=== PATIENT | male | born 2000 | race Caucasian/White ===

== ENCOUNTER 2022-11-17 05:49 | Emergency (ER) | payer OTHER, BC ==
[~2022-11-17] VITALS: Ht 175.3 cm; Wt 81.6 kg
[2022-11-17 06:12] VITALS: BP_SYST 130
[2022-11-17] MEDS ORDERED: HYDR-3917 PO (07:10)
[2022-11-17] MEDS ORDERED: IBUP-1971 PO (07:10)
== END 2022-11-17 07:21 | disposition home or self-care (01) ==
LOC: SED 05:49
DX: S70.311A Abrasion, right thigh, initial encounter (principal); Z79.899 Other long term (current) drug therapy; V49.40XA Driver injured in collision with unspecified motor vehicles in traffic accident, initial encounter; Y93.89 Activity, other specified; Y92.89 Other specified places as the place of occurrence of the external cause; Y99.8 Other external cause status
CPT/HCPCS: 99283